=== PATIENT | male | born 1945 | race Caucasian/White ===

== ENCOUNTER 2025-06-16 22:46 | Inpatient (IN) | payer MEDICARE, OTHER ==
[~2025-06-16] VITALS: Ht 177.8 cm; Wt 63.5 kg
[2025-06-16 23:40] LABS: PLATELET COUNT (AUTO) 575 K/uL (150-450); RED BLOOD CELL COUNT(AUTO) 4.68 MIL/uL (4.5-6.0); RED CELL DISTRIBUTION WIDTH 16.9 % (11.5-15.0); WHITE BLOOD COUNT (AUTO) 13.3 K/uL (4.3-11.0)
[2025-06-16 23:51] LABS: CALCIUM, SERUM 9.9 mg/dL (8.5-10.1); CREATININE 3.1 mg/dL (0.6-1.3); SODIUM SERUM 149 mmol/L (136-145)
[2025-06-16 23:52] LABS: SERUM AMMONIA 11 umol/L (11-32)
[2025-06-17] VITALS (53 sets, daily range): BP systolic 72–131; BP diastolic 49–94; TEMP 97.8–98; O2SAT 95–100
[2025-06-17 00:01] LABS: LACTIC ACID 7.6 mmol/L (0.4-2.0)
[2025-06-17 00:06] LABS: ASPARTATE AMINOTRANSFERASE 10 U/L (15-37); NT-PRO BNP 755 pg/mL (0-125); TOTAL PROTEIN, SERUM 7.0 g/dL (6.4-8.2); UREA NITROGEN, BLOOD 164 mg/dL (7-18)
[2025-06-17 00:11] LABS: APPEARANCE,URINE TURBID (CLEAR); BLOOD, URINE 3+ Ery/uL (NEGATIVE); LEUKOCYTE ESTERASE ,URINE 3+ (NEGATIVE); NITRITE, URINE NEGATIVE (NEGATIVE); UGLUCOSE NEGATIVE (NEGATIVE)
[2025-06-17] MEDS ORDERED: PIPERACI/TAZO 3.375GM/D5W 50ML PB IV ONE (00:44)
[2025-06-17] MEDS: PIPERACILLIN /TAZOBACTAM 3.375 G in IV D5W 50 ML IV ONE (00:51)
[2025-06-17 00:55] LABS: ADD URINE CULTURE YES; SQUAMOUS EPITHELIAL CELL,UR None Seen /HPF (None Seen)
[2025-06-17] MEDS: IV NS 0.9% 1,000 ML BAG IV ONE (01:10)
[2025-06-17 01:54] LABS: INR 1.13 (0.91-1.10)
[2025-06-17 01:57] LABS: ACETONE, SERUM NEGATIVE (NEGATIVE); CALCIUM, SERUM 9.5 mg/dL (8.5-10.1); CREATININE 3.0 mg/dL (0.6-1.3); SODIUM SERUM 152.0 mmol/L (136-145)
[2025-06-17 02:08] LABS: LACTIC ACID 5.5 mmol/L (0.4-2.0)
[2025-06-17 02:16] LABS: ASPARTATE AMINOTRANSFERASE 11.0 U/L (15-37); TOTAL PROTEIN, SERUM 6.4 g/dL (6.4-8.2)
[2025-06-17 02:17] LABS: UREA NITROGEN, BLOOD 163.0 mg/dL (7-18)
[2025-06-17] MEDS ORDERED: ONDANSETRON HCL/PF 4 MG/2 ML VIAL IVP PRN (03:00)
[2025-06-17] MEDS ORDERED: DOSING PER PHARMACY-VANCOMYCIN IV XX PRN ×2 (03:00→07:00)
[2025-06-17] MEDS ORDERED: DOSING PER PHARMACY-CEFEPIME IVPB XX PRN (03:00)
[2025-06-17] MEDS ORDERED: HEPARIN SODIUM, PORCINE 5000 UNITS/1 ML VIAL SQ SCH (03:00)
[2025-06-17] MEDS ORDERED: PROPOFOL 0 ML IV ONE (03:51)
[2025-06-17] MEDS ORDERED: PROPOFOL 100 ML ONE (03:52)
[2025-06-17] MEDS: ETOMIDATE 2 MG/ML VIAL IV ONE (03:53)
[2025-06-17] MEDS: SUCCINYLCHOLINE CHLORIDE 20 MG/ML VIAL IV ONE (03:54)
[2025-06-17] MEDS ORDERED: PROPOFOL 10MG/ML 50ML 50 ML IV PRN (04:00)
[2025-06-17 04:03] LABS: LACTIC ACID REFLEX 3.7 mmol/L (0.4-1.9)
[2025-06-17] MEDS ORDERED: NOREPINEPHRINE 8MG/250ML RTU 250 ML IV ONE (04:03)
[2025-06-17] MEDS: NOREPINEPHRINE 8 MG in IV NS 0.9% 250 ML IV PRN (04:10)
[2025-06-17] MEDS: PROPOFOL 10MG/ML 50ML 50 ML IV PRN (04:12)
[2025-06-17] MEDS ORDERED: DEXTROSE 50%-WATER 50 ML DISP.SYRIN IV PRN (05:00)
[2025-06-17 05:53] LABS: ABG BASE EXCESS -14.2 mmol/L (-2.0-3.0); ABG OXYGEN SATURATION 97.4 % (94.0-98.0); ABG PCO2 30.3 mmHg (35.0-48.0); ABG PH 7.222 (7.350-7.450); ABG PO2 121.3 mmHg (83.0-108.0); ABG TOTAL HEMOGLOBIN 12.6 G/dL (13.5-17.5); PEEP,BG 5 cm H2O; SET RATE, BG 18.0; SITE, ABG LEFT RADIAL; VT, ABG 500 mL
[2025-06-17 06:58] LABS: PHOSPHORUS 6.5 mg/dL (2.5-4.9)
[2025-06-17] MEDS ORDERED: CEFEPIME 1 GM in IV NS 0.9% 100 ML IV ONE (07:00)
[2025-06-17] MEDS ORDERED: VANCOMYCIN 1 GM in IV D5W 250 ML IV ONE (07:00)
[2025-06-17 07:15] LABS: PLATELET COUNT (AUTO) 501 K/uL (150-450); RED BLOOD CELL COUNT(AUTO) 4.40 MIL/uL (4.5-6.0); RED CELL DISTRIBUTION WIDTH 17.1 % (11.5-15.0); WHITE BLOOD COUNT (AUTO) 16.2 K/uL (4.3-11.0)
[2025-06-17] MEDS ORDERED: CEFEPIME 2 GM in IV D5W 100 ML IV SCH (08:00)
[2025-06-17] MEDS ORDERED: METF-442 PO (08:01)
[2025-06-17] MEDS ORDERED: DONE5TAB34 PO (08:01)
[2025-06-17] MEDS ORDERED: FOLI0.4T6 PO (08:02)
[2025-06-17] MEDS ORDERED: TRAZ-182 PO (08:02)
[2025-06-17] MEDS ORDERED: ALPR0.255 PO (08:02)
[2025-06-17] MEDS ORDERED: DOXY100T2 PO (08:02)
[2025-06-17 08:05] LABS: CALCIUM, SERUM 9.3 mg/dL (8.5-10.1); CREATININE 2.8 mg/dL (0.6-1.3); SODIUM SERUM 152.0 mmol/L (136-145)
[2025-06-17 08:22] LABS: UREA NITROGEN, BLOOD 165.0 mg/dL (7-18)
[2025-06-17] MEDS: BLOOD SUGAR DIAGNOSTIC 1 EACH STRIP IN SCH (09:17)
[2025-06-17] MEDS: INSULIN REGULAR, HUMAN 100 UNIT/ML 3 ML VIAL SQ PRN (09:18)
[2025-06-17] MEDS: PANTOPRAZOLE 40 MG VIAL IV SCH (09:29)
[2025-06-17] MEDS ORDERED: DOSING PER PHARMACY-ZOSYN IV 1 EA EA XX PRN (09:30)
[2025-06-17] MEDS: PROPOFOL 100 ML IV PRN (09:30)
[2025-06-17] MEDS: HEPARIN SODIUM, PORCINE 5000 UNITS/1 ML VIAL SQ SCH (09:44)
[2025-06-17] MEDS: VANCOMYCIN HCL 1.25 GM in IV D5W 250 ML IV ONE (09:48)
[2025-06-17] MEDS: NOREPINEPHRINE 8 MG in IV NS 0.9% 242 ML IV PRN (10:10)
[2025-06-17] MEDS: IV 1/2NS 1000 ML 1,000 ML IV PRN (10:12)
[2025-06-17] MEDS: NA PHOS,M-B/NA PHOS,DI-BA 1 EA ENEMA RC ONE (10:53)
[2025-06-17] MEDS: AZITHROMYCIN 500 MG in IV D5W 250 ML IV SCH (11:47)
[2025-06-17 12:20] LABS: BAND % (MANUAL) 4 % (0.0-5.0); LYMPHOCYTES % (MANUAL) 2 % (16-48); MONOCYTES % (MANUAL) 3 % (0-11.0); NEUTROPHILS % (MANUAL) 91 (42-76)
[2025-06-17 12:21] LABS: PLATELET ESTIMATE INCREASED
[2025-06-17] MEDS: ZOSYN IVPB 2.25 G in IV D5W 50ml IV SCH (12:58)
[2025-06-17 14:43] LABS: APPEARANCE,URINE TURBID (CLEAR); BLOOD, URINE 3+ Ery/uL (NEGATIVE); CREATININE, URINE 25.5 MG/DL (30.0-125.0); LEUKOCYTE ESTERASE ,URINE 3+ (NEGATIVE); NITRITE, URINE POSITIVE (NEGATIVE); UGLUCOSE NEGATIVE (NEGATIVE); URINE SODIUM, RANDOM 37.0 mmol/l (40-220); URINE TOTAL PROTEIN 253.5 mg/dL (0-11.9)
[2025-06-17 14:48] LABS: ADD URINE CULTURE YES
[2025-06-17 15:05] LABS: YEAST,URINE Moderate /HPF (None Seen)
[2025-06-17 15:06] LABS: EOSINOPHIL,URINE None Seen
[2025-06-18] VITALS (93 sets, daily range): BP systolic 88–124; BP diastolic 57–76; TEMP 96.5–98.8; O2SAT 94–100
[2025-06-18 03:42] LABS: ASPARTATE AMINOTRANSFERASE 14.0 U/L (15-37); CALCIUM, SERUM 8.1 mg/dL (8.5-10.1); CREATINE KINASE, TOTAL 32.0 U/L (39-308); CREATININE 1.3 mg/dL (0.6-1.3); PHOSPHORUS 3.2 mg/dL (2.5-4.9); SODIUM SERUM 144.0 mmol/L (136-145); TOTAL PROTEIN, SERUM 5.7 g/dL (6.4-8.2); UREA NITROGEN, BLOOD 76.0 mg/dL (7-18)
[2025-06-18 04:56] LABS: PLATELET COUNT (AUTO) 404 K/uL (150-450); RED BLOOD CELL COUNT(AUTO) 3.82 MIL/uL (4.5-6.0); RED CELL DISTRIBUTION WIDTH 16.9 % (11.5-15.0); WHITE BLOOD COUNT (AUTO) 15.1 K/uL (4.3-11.0)
[2025-06-18] MEDS ORDERED: VANCOMYCIN 750 MG in IV D5W 250 ML IV SCH ×2 (09:00→21:00)
[2025-06-18] MEDS: VANCOMYCIN 1 GM in IV D5W 250 ML IV SCH (09:56)
[2025-06-18] MEDS: ENOXAPARIN SODIUM 60 MG/0.6 ML DISP.SYRIN SQ SCH (21:21)
[2025-06-18] MEDS: TAMSULOSIN 0.4 MG CAP.SR.24H PO SCH (22:00)
[2025-06-19] VITALS (46 sets, daily range): BP systolic 90–116; BP diastolic 57–80; TEMP 98–99.8; O2SAT 98–100
[2025-06-19 04:53] LABS: PLATELET COUNT (AUTO) 369 K/uL (150-450); RED BLOOD CELL COUNT(AUTO) 3.65 MIL/uL (4.5-6.0); RED CELL DISTRIBUTION WIDTH 17.0 % (11.5-15.0); WHITE BLOOD COUNT (AUTO) 18.3 K/uL (4.3-11.0)
[2025-06-19 05:15] LABS: CALCIUM, SERUM 8.0 mg/dL (8.5-10.1); CREATININE 1.1 mg/dL (0.6-1.3); SODIUM SERUM 149.0 mmol/L (136-145); UREA NITROGEN, BLOOD 49.0 mg/dL (7-18)
[2025-06-19 10:11] LABS: ABG BASE EXCESS -9.5 mmol/L (-2.0-3.0); ABG OXYGEN SATURATION 96.8 % (94.0-98.0); ABG PCO2 21.7 mmHg (35.0-48.0); ABG PH 7.408 (7.350-7.450); ABG PO2 97.6 mmHg (83.0-108.0); ABG TOTAL HEMOGLOBIN 10.8 G/dL (13.5-17.5); PEEP,BG 5 cm H2O; SET RATE, BG 18.0; SITE, ABG LEFT RADIAL; VT, ABG 500 mL
[2025-06-19] MEDS: THERAHONEY GEL 1.5 OZ TUBE TP SCH (10:48)
[2025-06-19] MEDS: INSULIN GLARGINE, 100 UNIT/ML CARTRIDGE SQ SCH (10:49)
[2025-06-19] MEDS: Sodium Bicarbonate 100 MEQ in IV D5 / 0.2% NACL 1,000 ML IV SCH (10:49)
[2025-06-19] MEDS: PANTOPRAZOLE 40 MG VIAL IV SCH (22:19)
[2025-06-20] VITALS (23 sets, daily range): BP systolic 80–116; BP diastolic 52–83; TEMP 98.2–99.4; O2SAT 92–100
[2025-06-20 00:08] LABS: HEPATITIS B SURFACE AB (QUAL) Non Reactive (.)
[2025-06-20 01:11] LABS: PTH, INTACT 57 pg/mL (15-65)
[2025-06-20 05:14] LABS: PLATELET COUNT (AUTO) 347 K/uL (150-450); RED BLOOD CELL COUNT(AUTO) 3.50 MIL/uL (4.5-6.0); RED CELL DISTRIBUTION WIDTH 16.4 % (11.5-15.0); WHITE BLOOD COUNT (AUTO) 15.8 K/uL (4.3-11.0)
[2025-06-20 05:16] LABS: CALCIUM, SERUM 8.0 mg/dL (8.5-10.1); CREATININE 1.1 mg/dL (0.6-1.3); SODIUM SERUM 151 mmol/L (136-145); UREA NITROGEN, BLOOD 25 mg/dL (7-18)
[2025-06-20] MEDS ORDERED: POTASSIUM CL. PREMIX PERIPHER. 50 ML IV SCH (09:00)
[2025-06-20] MEDS ORDERED: POTASSIUM CHLORIDE 20 MEQ POWDER PACKET GT ONE (09:00)
[2025-06-20] MEDS: POTASSIUM CHLORIDE 20 MEQ POWDER PACKET GT ONE (09:01)
[2025-06-20] MEDS: INSULIN GLARGINE, 100 UNIT/ML CARTRIDGE SQ SCH (09:11)
[2025-06-20] MEDS ORDERED: NEPRO 1,000 ML BOTTLE NG PRN (09:30)
[2025-06-20] MEDS: Potassium Chloride 20 MEQ in IV D5W 1,000 ML IV SCH (10:11)
[2025-06-20] MEDS: PIPERACILLIN /TAZOBACTAM 3.375 G in IV D5W 50 ML IV SCH (12:33)
[2025-06-20] MEDS: GLUCERNA 1.2 1,000 ML BOTTLE NG PRN (18:29)
[2025-06-21] VITALS (28 sets, daily range): BP systolic 90–131; BP diastolic 59–79; TEMP 97.6–98.2; O2SAT 95–100
[2025-06-21] MEDS: ACETAMINOPHEN 650 MG/SUPP.RECT RC PRN (03:46)
[2025-06-21 04:12] LABS: PLATELET COUNT (AUTO) 330 K/uL (150-450); RED BLOOD CELL COUNT(AUTO) 3.44 MIL/uL (4.5-6.0); RED CELL DISTRIBUTION WIDTH 16.5 % (11.5-15.0); WHITE BLOOD COUNT (AUTO) 14.7 K/uL (4.3-11.0)
[2025-06-21 04:21] LABS: CALCIUM, SERUM 7.9 mg/dL (8.5-10.1); CREATININE 1.0 mg/dL (0.6-1.3); PHOSPHORUS 1.9 mg/dL (2.5-4.9); SODIUM SERUM 146.0 mmol/L (136-145); UREA NITROGEN, BLOOD 23.0 mg/dL (7-18)
[2025-06-21] MEDS: PANTOPRAZOLE 40 MG/PACK PACK GT SCH (09:05)
[2025-06-21] MEDS: NEUTRA PHOS 1 POWD.PACKET PO SCH (09:06)
[2025-06-21] MEDS: VANCOMYCIN HCL 1.25 GM in IV D5W 250 ML IV SCH (09:06)
[2025-06-21] MEDS: Sodium Phosphate 15 MMOL in IV NS 0.9% 245 ML IV SCH (09:44)
[2025-06-21] MEDS: INSULIN GLARGINE, 100 UNIT/ML CARTRIDGE SQ SCH (10:23)
[2025-06-22] VITALS (32 sets, daily range): BP systolic 79–116; BP diastolic 52–92; TEMP 98.1–102.6; O2SAT 96–100
[2025-06-22 04:48] LABS: PLATELET COUNT (AUTO) 288 K/uL (150-450); RED BLOOD CELL COUNT(AUTO) 3.12 MIL/uL (4.5-6.0); RED CELL DISTRIBUTION WIDTH 16.6 % (11.5-15.0); WHITE BLOOD COUNT (AUTO) 10.9 K/uL (4.3-11.0)
[2025-06-22 05:04] LABS: CALCIUM, SERUM 7.5 mg/dL (8.5-10.1); CREATININE 1.1 mg/dL (0.6-1.3); PHOSPHORUS 2.3 mg/dL (2.5-4.9); SODIUM SERUM 139.0 mmol/L (136-145); UREA NITROGEN, BLOOD 21.0 mg/dL (7-18)
[2025-06-22] MEDS: MIDODRINE HCL (5MG) 5 MG TABLET NG SCH (09:39)
[2025-06-22] MEDS: INSULIN GLARGINE, 100 UNIT/ML CARTRIDGE SQ SCH (09:40)
[2025-06-22] MEDS: Sodium Phosphate 15 MMOL in IV NS 0.9% 245 ML IV SCH (10:15)
[2025-06-22 10:58] LABS: ABG BASE EXCESS 0.1 mmol/L (-2.0-3.0); ABG OXYGEN SATURATION 97.2 % (94.0-98.0); ABG PCO2 30.2 mmHg (35.0-48.0); ABG PH 7.497 (7.350-7.450); ABG PO2 93.7 mmHg (83.0-108.0); ABG TOTAL HEMOGLOBIN 9.5 G/dL (13.5-17.5); FRACTIONATED INSPIRED OXYGEN 40.0 %; SET RATE, BG 4.0; SITE, ABG RIGHT RADIAL; VT, ABG 500 mL
[2025-06-22] MEDS: ACETAMINOPHEN 650 MG/20.3 ML UDC NG PRN (20:25)
[2025-06-23] VITALS (29 sets, daily range): BP systolic 78–113; BP diastolic 55–77; TEMP 98.1–99.9; O2SAT 95–100
[2025-06-23 05:03] LABS: PLATELET COUNT (AUTO) 292 K/uL (150-450); RED BLOOD CELL COUNT(AUTO) 3.15 MIL/uL (4.5-6.0); RED CELL DISTRIBUTION WIDTH 16.0 % (11.5-15.0); WHITE BLOOD COUNT (AUTO) 12.9 K/uL (4.3-11.0)
[2025-06-23 06:00] LABS: ASPARTATE AMINOTRANSFERASE 32 U/L (15-37); CALCIUM, SERUM 7.7 mg/dL (8.5-10.1); CREATININE 0.9 mg/dL (0.6-1.3); PHOSPHORUS 2.8 mg/dL (2.5-4.9); SODIUM SERUM 138 mmol/L (136-145); TOTAL PROTEIN, SERUM 5.1 g/dL (6.4-8.2); UREA NITROGEN, BLOOD 18 mg/dL (7-18)
[2025-06-23 06:25] LABS: SERUM AMMONIA 11 umol/L (11-32)
[2025-06-24] VITALS (25 sets, daily range): BP systolic 86–126; BP diastolic 57–71; TEMP 97.9–99.5; O2SAT 97–100
[2025-06-24 04:36] LABS: CALCIUM, SERUM 8.2 mg/dL (8.5-10.1); CREATININE 1.0 mg/dL (0.6-1.3); SODIUM SERUM 141.0 mmol/L (136-145); UREA NITROGEN, BLOOD 17.0 mg/dL (7-18)
[2025-06-24] MEDS: INSULIN GLARGINE, 100 UNIT/ML CARTRIDGE SQ SCH (09:17)
[2025-06-25] VITALS (27 sets, daily range): BP systolic 85–107; BP diastolic 56–72; TEMP 98.3–98.8; O2SAT 97–100
[2025-06-25 04:45] LABS: CALCIUM, SERUM 8.1 mg/dL (8.5-10.1); CREATININE 1.0 mg/dL (0.6-1.3); SODIUM SERUM 140.0 mmol/L (136-145); UREA NITROGEN, BLOOD 17.0 mg/dL (7-18)
[2025-06-25] MEDS: INSULIN GLARGINE, 100 UNIT/ML CARTRIDGE SQ SCH (09:10)
[2025-06-26] VITALS (43 sets, daily range): BP systolic 85–117; BP diastolic 53–74; TEMP 97.8–99.4; O2SAT 97–100
[2025-06-26 05:09] LABS: CALCIUM, SERUM 8.1 mg/dL (8.5-10.1); CREATININE 1.0 mg/dL (0.6-1.3); SODIUM SERUM 137 mmol/L (136-145); UREA NITROGEN, BLOOD 17 mg/dL (7-18)
[2025-06-27] VITALS (41 sets, daily range): BP systolic 89–111; BP diastolic 53–73; TEMP 97.6–99.6; O2SAT 98–100
[2025-06-27 04:29] LABS: PLATELET COUNT (AUTO) 466 K/uL (150-450); RED BLOOD CELL COUNT(AUTO) 2.80 MIL/uL (4.5-6.0); RED CELL DISTRIBUTION WIDTH 15.9 % (11.5-15.0); WHITE BLOOD COUNT (AUTO) 8.3 K/uL (4.3-11.0)
[2025-06-27 04:37] LABS: CREATININE 1.0 mg/dL (0.6-1.3); SODIUM SERUM 139.0 mmol/L (136-145); UREA NITROGEN, BLOOD 17.0 mg/dL (7-18)
[2025-06-27 04:42] LABS: CALCIUM, SERUM 8.2 mg/dL (8.5-10.1)
[2025-06-27] MEDS: MAGNESIUM HYDROXIDE 30 ML UDC NG PRN (21:27)
[2025-06-28] VITALS (32 sets, daily range): BP systolic 91–109; BP diastolic 55–71; TEMP 97.9–99.5; O2SAT 94–100
[2025-06-28 04:48] LABS: PLATELET COUNT (AUTO) 505 K/uL (150-450); RED BLOOD CELL COUNT(AUTO) 2.82 MIL/uL (4.5-6.0); RED CELL DISTRIBUTION WIDTH 15.4 % (11.5-15.0); WHITE BLOOD COUNT (AUTO) 8.4 K/uL (4.3-11.0)
[2025-06-28 04:57] LABS: CALCIUM, SERUM 8.4 mg/dL (8.5-10.1); CREATININE 0.9 mg/dL (0.6-1.3); SODIUM SERUM 140.0 mmol/L (136-145); UREA NITROGEN, BLOOD 15.0 mg/dL (7-18)
[2025-06-29] VITALS (27 sets, daily range): BP systolic 93–121; BP diastolic 58–77; TEMP 97.3–98.7; O2SAT 97–100
[2025-06-29 03:44] LABS: CALCIUM, SERUM 8.5 mg/dL (8.5-10.1); CREATININE 0.9 mg/dL (0.6-1.3); SODIUM SERUM 138.0 mmol/L (136-145); UREA NITROGEN, BLOOD 14.0 mg/dL (7-18)
[2025-06-29] MEDS: INSULIN GLARGINE, 100 UNIT/ML CARTRIDGE SQ SCH (09:43)
[2025-06-30] VITALS (25 sets, daily range): BP systolic 93–128; BP diastolic 53–80; TEMP 98.2–100; O2SAT 98–100
[2025-06-30 04:44] LABS: PLATELET COUNT (AUTO) 576 K/uL (150-450); RED BLOOD CELL COUNT(AUTO) 3.04 MIL/uL (4.5-6.0); RED CELL DISTRIBUTION WIDTH 15.7 % (11.5-15.0); WHITE BLOOD COUNT (AUTO) 9.7 K/uL (4.3-11.0)
[2025-06-30 04:52] LABS: CALCIUM, SERUM 8.6 mg/dL (8.5-10.1); CREATININE 0.9 mg/dL (0.6-1.3); SODIUM SERUM 138.0 mmol/L (136-145); UREA NITROGEN, BLOOD 17.0 mg/dL (7-18)
[2025-06-30] MEDS: MIDODRINE HCL (5MG) 5 MG TABLET NG SCH (09:49)
[2025-07-01] VITALS (24 sets, daily range): BP systolic 92–136; BP diastolic 57–80; TEMP 98.8–99.5; O2SAT 97–100
[2025-07-02] VITALS (8 sets, daily range): BP systolic 91–116; BP diastolic 58–75; TEMP 99.5–100; O2SAT 97–100
[2025-07-02 04:26] LABS: PLATELET COUNT (AUTO) 614 K/uL (150-450); RED BLOOD CELL COUNT(AUTO) 2.95 MIL/uL (4.5-6.0); RED CELL DISTRIBUTION WIDTH 15.7 % (11.5-15.0); WHITE BLOOD COUNT (AUTO) 8.7 K/uL (4.3-11.0)
[2025-07-02 04:30] LABS: CREATININE 1.0 mg/dL (0.6-1.3); SODIUM SERUM 137.0 mmol/L (136-145); UREA NITROGEN, BLOOD 19.0 mg/dL (7-18)
[2025-07-02 04:37] LABS: CALCIUM, SERUM 8.6 mg/dL (8.5-10.1)
[2025-07-04 05:12] LABS: *SPE A/G RATIO 0.5 (0.7-1.7); *SPE ALBUMIN 1.7 g/dL (2.9-4.4); *SPE ALPHA-1-GLOBULIN 0.4 g/dL (0.0-0.4); *SPE ALPHA-2-GLOBULIN 1.1 g/dL (0.4-1.0); *SPE BETA GLOBULIN 0.9 g/dL (0.7-1.3); *SPE GLOBULIN, TOTAL 3.2 g/dL (2.2-3.9); *SPE M-SPIKE Not Observed g/dL (Not Observed); *SPE PROTEIN TOTAL 4.9 g/dL (6.0-8.5); *SPEGAMMA GLOBULIN 0.7 g/dL (0.4-1.8)
== END 2025-07-02 06:54 | disposition short-term general hospital (02) | DRG 870 ==
LOC: ER 22:53 → ICU 06-17 06:23
PROVIDERS: ADMIT Registered Nurse Psychiatric/Mental Health; ATTEND Internal Medicine
PROC: 5A1955Z Respiratory Ventilation, Greater than 96 Consecutive Hours (ICD-10-PCS; principal; 2025-06-17)
PROC: 0BH17EZ Insertion of Endotracheal Airway into Trachea, Via Natural or Artificial Opening (ICD-10-PCS; 2025-06-17)
PROC: 5A1D70Z Performance of Urinary Filtration, Intermittent, Less than 6 Hours Per Day (ICD-10-PCS; 2025-06-17)
PROC: 05HM33Z Insertion of Infusion Device into Right Internal Jugular Vein, Percutaneous Approach (ICD-10-PCS; 2025-06-18)
DX: A41.9 Sepsis, unspecified organism (principal); L89.313 Pressure ulcer of right buttock, stage 3; E43 Unspecified severe protein-calorie malnutrition; J15.9 Unspecified bacterial pneumonia; R65.21 Severe sepsis with septic shock; J69.0 Pneumonitis due to inhalation of food and vomit; N17.0 Acute kidney failure with tubular necrosis; J96.01 Acute respiratory failure with hypoxia; I21.A1 Myocardial infarction type 2; G93.41 Metabolic encephalopathy; D68.59 Other primary thrombophilia; E87.21 Acute metabolic acidosis; Z99.11 Dependence on respirator [ventilator] status; J98.11 Atelectasis; E87.0 Hyperosmolality and hypernatremia; L12.0 Bullous pemphigoid; I48.92 Unspecified atrial flutter; D84.9 Immunodeficiency, unspecified; D64.9 Anemia, unspecified; D75.839 Thrombocytosis, unspecified; E11.65 Type 2 diabetes mellitus with hyperglycemia; E83.39 Other disorders of phosphorus metabolism; I48.0 Paroxysmal atrial fibrillation; K56.41 Fecal impaction; R13.10 Dysphagia, unspecified; Z79.4 Long term (current) use of insulin; Z93.1 Gastrostomy status; Z85.51 Personal history of malignant neoplasm of bladder; Z99.2 Dependence on renal dialysis; Z20.822 Contact with and (suspected) exposure to COVID-19; I10 Essential (primary) hypertension; F03.90 Unspecified dementia, unspecified severity, without behavioral disturbance, psychotic disturbance, mood disturbance, and anxiety; E87.5 Hyperkalemia; R94.31 Abnormal electrocardiogram [ECG] [EKG]; E88.09 Other disorders of plasma-protein metabolism, not elsewhere classified; Z68.20 Body mass index [BMI] 20.0-20.9, adult; L89.156 Pressure-induced deep tissue damage of sacral region; L98.8 Other specified disorders of the skin and subcutaneous tissue; E83.89 Other disorders of mineral metabolism; N40.1 Benign prostatic hyperplasia with lower urinary tract symptoms; S91.312A Laceration without foreign body, left foot, initial encounter; X58.XXXA Exposure to other specified factors, initial encounter; Y93.9 Activity, unspecified; Y92.009 Unspecified place in unspecified non-institutional (private) residence as the place of occurrence of the external cause; B96.89 Other specified bacterial agents as the cause of diseases classified elsewhere; N13.9 Obstructive and reflux uropathy, unspecified; E11.51 Type 2 diabetes mellitus with diabetic peripheral angiopathy without gangrene; Z85.46 Personal history of malignant neoplasm of prostate
CPT/HCPCS: 31720; 36415; 36600; 70450-TC; 71045-TC; 76770-TC; 80048-TC; 80053-TC; 80076-TC; 80202-TC; 81001; 82010-TC; 82140-TC; 82248-TC; 82533; 82550-TC; 82570-TC; 82607-TC; 82803-TC; 82962-TC; 83605-TC; 83735-TC; 83880; 83970; 84100-TC; 84155; 84165; 84300-TC; 84478-TC; 84484-TC; 85025-TC; 85027-TC; 85730-TC; 86706; 87040-TC; 87070-TC; 87081-TC; 87086-TC; 87205-TC; 87340; 90935-TC; 93307-TC; 94002-TC; 94003-TC; 94760-TC; 94799-TC; 99082-TC; A4223; A6254; A9563; C1752; G0378; J0456; J0692; J1644; J1650; J1815; J2470; J2543; J2704; J3373; J3374; J3480; J3490; J7030; J7050; J7060; J7070